=== PATIENT | female | born 1985 | race Caucasian/White ===

== ENCOUNTER 2017-01-20 20:28 | Emergency (ER) | payer SELFPAY ==
[2017-01-20] MEDS ORDERED: HYDROCODONE/ACETAMINOPHEN 5-325 MG 6 TAB/DSPK PO PRN (22:25)
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
[2017-01-21 01:13] VITALS: BP 134/82
== END 2017-01-20 22:45 | disposition home or self-care (01) ==
LOC: ER 20:28
DX: T24.231A Burn of second degree of right lower leg, initial encounter (principal); X16.XXXA Contact with hot heating appliances, radiators and pipes, initial encounter; F17.210 Nicotine dependence, cigarettes, uncomplicated
CPT/HCPCS: 99283